=== PATIENT | male | born 1985 | race Caucasian/White ===

== ENCOUNTER 2022-05-19 15:04 | Emergency (ER) | payer SELFPAY ==
--- NOTE | 2022-05-19 15:00 | ECG_ITS ---
APPROVED REPORT Exam: Resting ECG HR:76 bpm ECG Measurements Heart Rate 76 AXES NM 143 P 53 QRSd 106 QRS 12 QT 374 T 49 QTc 405 Conclusion SINUS RHYTHM NORMAL ECG UNCONFIRMED REPORT Electronically signed by : Gaurang uClp MD 05/20/2022 17:38:08
[2022-05-19 15:05] VITALS: BP 119/80; PULSE 61; RESP 18; TEMP 36.7; O2SAT 100; BMI 27.8
[2022-05-19 16:31] VITALS: BP 134/65; PULSE 63; RESP 20; O2SAT 99
[2022-05-19 17:01] VITALS: BP 126/68; PULSE 72; RESP 20; O2SAT 99
--- NOTE | 2022-05-19 17:17 | XR_ITS ---
PROCEDURE INFORMATION: Exam: XR Chest Exam date and time: 05/19/2022 5:51 PM Age: 36 years old Clinical indication: Pain; Chest pressure; Additional info: Cp TECHNIQUE: Imaging protocol: Radiologic exam of the chest. Views: 1 view. Portable AP exam 5:51 p.m. COMPARISON: No relevant prior studies available. FINDINGS: Lungs: No acute pulmonary findings. No pulmonary consolidation. Lung volumes within normal limits. Pulmonary vessels do not appear congested. Pleural spaces: Unremarkable. No significant pleural effusion. No pneumothorax. Heart/Mediastinum: The cardiac silhouette appears mildly enlarged, though accentuated by portable AP technique. Bones/joints: There is no evidence of acute fracture. IMPRESSION: 1. Slightly enlarged cardiac silhouette. 2. No acute cardiopulmonary findings.
--- NOTE | 2022-05-19 17:19 | [facility].EDCP ---
Discharge Plan Disposition Patient Disposition: Home, Self-Care Condition: Good Referrals Follow up/Referrals: Provider,Referral, [Primary Care Provider] - See instructions Activity Restrictions/Add. Instructions Additional Instructions/Restrictions: Avoid exertion avoid heavy lifting or straining. [id number] ibuprofen 6 mg as needed 3-4 times daily. Return for increasing shortness of air or other concerns. Clinical Impressions Clinical Impression: Atypical chest pain Instructions Patient Instructions: DI for Atypical Chest Pain Discharge ED Provider: Carlyle Stewart Chest Pain HPI General Chief Complaint: Chest Pain Stated Complaint: Chest Pain Time Seen by Provider: 05/19/22 17:05 Mode of Arrival: Ambulatory Source of Information: Patient Limitations: No Limitations Description of Symptoms (Recalled from ER Triage Doc. by RN): Patient reports right sided rib pain when he breaths. Patient reports his kids were sick last week and he started feeling bad but thought he was getting better than it hit him all of the sudden again today and he had to leave work. History of Present Illness HPI narrative: She presents complaining of right-sided chest discomfort that began yesterday and became more pronounced today. He describes symptoms as severe at times and presently mild and worse with deep breaths. He denies recent fever or cough although he states 1 week ago he did have symptoms to include GI symptoms such as vomiting and headache and his children were sick at that time. X-rays once OVL be happy to Related Data Allergies Allergy/AdvReac Type Severity Reaction Status Date / Time No Known Allergies Allergy Verified 05/19/22 15:16 PFSH PFSH Social History Smoking Status: Never smoker alcohol intake: never current occupational status: employed Travel in the last 8 weeks: None ROS Obtained: Yes All systems reviewed & no additional complaints except as documented Physical Exam General General appearance: alert and in no apparent distress Head Head exam: atraumatic Eye Eye exam: Present normal appearance ENT ENT exam: Present normal exam Neck Neck exam: Present normal inspection Chest Chest inspection: Present normal inspection Respiratory Respiratory exam: Present normal lung sounds bilaterally Cardiovascular Cardiovascular exam: Present regular rate and normal rhythm Abdominal Exam Abdominal exam: Present soft; Absent tenderness Extremities Exam Extremities exam: Present normal inspection Back Exam Back exam: Present normal inspection Neurological Exam Neurological exam: Present alert and oriented X3 Skin Skin exam: Present warm and dry Lymphatic Lymphatic Findings: no adenopathy Medical Decision Making Medical Records Medical records reviewed: Yes I reviewed the patient's medical records. Jabari Inquiry Pt receiving controlled substance: No Jabari was queried for this patient: No Vital Signs: 05/19/22 15:05 05/19/22 16:31 05/19/22 17:01 Temperature 98.1 F Temperature Source Oral Pulse Rate 63 72 Pulse Rate [Right Brachial] 61 Respiratory Rate 18 20 20 Blood Pressure 134/65 126/68 Blood Pressure [Right Arm] 119/80 Blood Pressure Mean 82 77 Blood Pressure Mean [Right Arm] 93 Blood Pressure Source [Right Arm] Automatic Cuff Blood Pressure Position [Right Arm] Sitting 02 Sat by Pulse Oximetry 100 99 99 Oxygen Delivery Method Room Air 05/19/22 18:00 05/19/22 18:30 Temperature Temperature Source Pulse Rate 60 65 Pulse Rate [Right Brachial] Respiratory Rate Blood Pressure Blood Pressure [Right Arm] Blood Pressure Mean Blood Pressure Mean [Right Arm] Blood Pressure Source [Right Arm] Blood Pressure Position [Right Arm] 02 Sat by Pulse Oximetry 95 97 Oxygen Delivery Method Lab Data Lab results reviewed: Yes I reviewed the patient's lab results. Lab Results 05/19/22 15:11: D-Dimer 0.59 H 05/19/22 15:11: Troponin
[2022-05-19 17:25] LABS: Influenza A, PCR Not Detected (NotDetected); Influenza B, PCR Not Detected (NotDetected)
[2022-05-19 17:41] LABS: Alanine Aminotransferase 36 U/L (12-78); Albumin Level 4.5 g/dl (3.5-5.0); Albumin/Globulin Ratio 1.4 (1.1-1.8); Alkaline Phosphatase 89 U/L (38-126); Anion Gap 17.5 mEq/L (5-15); Aspartate Amino Transferase 33 U/L (17-59); Bilirubin,Total 1.3 mg/dl (0.2-1.3); Blood Urea Nitrogen 10 mg/dl (9-20); Carbon Dioxide 30 mmol/L (22.0-30.0); Chloride 97 mmol/L (98-107); Creatinine Clearance Estimated 146 mL/min (50-200); Estimated Glomerular Filt Rate 95 ml/min (>60); GFR (African American) 116 ML/MIN (>60); Globulin 3.3 g/dL (1.3-3.2); Glucose 87 mg/dl (74-100); Potassium 3.5 mmoL/L (3.5-5.1); Sodium 141 mmol/L (136-145); Total Protein,Serum 7.8 g/dl (6.3-8.2)
[2022-05-19 17:46] LABS: D-Dimer 0.59 ug/mL (0.0-0.5)
[2022-05-19 17:55] LABS: Troponin I < 0.01 ng/ml (0.00-0.034)
[2022-05-19 18:00] VITALS: PULSE 60; O2SAT 95
[2022-05-19 18:06] LABS: Coronavirus 19, PCR Detected (NotDetected)
--- NOTE | 2022-05-19 18:29 | CT_ITS ---
PROCEDURE INFORMATION: Exam: CTA Chest With Contrast Exam date and time: 05/19/2022 6:35 PM Age: 36 years old Clinical indication: Pain; Right-sided; Additional info: Cp TECHNIQUE: Imaging protocol: Computed tomographic angiography of the chest with contrast. 3D rendering (Not supervised by radiologist): MIP and/or 3D reconstructed images were created by the technologist. Radiation optimization: All CT scans at this facility use at least one of these dose optimization techniques: automated exposure control; mA and/or kV adjustment per patient size (includes targeted exams where dose is matched to clinical indication); or iterative reconstruction. Contrast material: ISOVUE 370; Contrast volume: 70 ml; Contrast route: INTRAVENOUS (IV); COMPARISON: CR XR CHEST PORTABLE 05/19/2022 5:51 PM FINDINGS: Pulmonary arteries: No acute pulmonary emboli. No large, central or segmental emboli. Aorta: No thoracic aortic aneurysm. Some motion and streak artifacts in the ascending aorta, no definite dissection. Thyroid: Heterogeneous thyroid with streak artifacts, no definite enlarged or suspicious nodules requiring follow-up. Lungs: Mild subsegmental atelectasis or scarring in the lower lobes. Ovoid retrocardiac 7 x 5 nodular opacity in the left lower lobe series 5, image 76, but on sagittal series 1002, image 64, this appears more likely to be a band of atelectasis or scarring . No other nodules. No consolidation. Pleural spaces: Unremarkable. No pneumothorax. No pleural effusion. Heart: The cardiac size appears borderline enlarged. No significant pericardial effusion.No definite coronary artery calcification is visualized. Heart RV/LV ratio: RV/LV ratio equals approximate 0.85, within upper normal limits. There is no reflux of contrast into the IVC or hepatic veins to suggest acute right heart strain. Lymph nodes: No significantly enlarged lymph nodes by short axis criteria. Spleen: Slight splenomegaly 13.2 cm long axis series 5, image 98. Bones/joints: There is no evidence of acute fracture. Soft tissues: There are no soft tissue masses or fluid collections. IMPRESSION: 1. No thoracic aortic aneurysm or evidence of dissection in the chest. 2. No acute pulmonary emboli. 3. Borderline cardiomegaly. 4. A questionable 7 mm retrocardiac left lower lobe nodule versus atelectasis or scarring. For patients at low risk (minimal or absent history of smoking and of other known risk factors), recommend CT Chest at 6-12 months, then consider CT Chest at 18-24 months. For patients at high risk (history of smoking or of other known risk factors), recommend CT Chest at 6-12 months, then CT Chest at 18-24 months. (Reference: [facility]) 5. Additional nonemergency and chronic findings as above. REFERENCES: [facility] Kuhn, et al. Guidelines for Management of Incidental Pulmonary Nodules Detected on CT Images: From the Fleischner Society 2017. Radiology. 2017;284(1):228-243.
[2022-05-19 18:30] VITALS: PULSE 65; O2SAT 97
--- NOTE | 2022-05-19 19:32 | PC.NURSE ---
patient given ice water
[2022-05-19 19:53] VITALS: BP 124/75; PULSE 60; PULSE 65; RESP 20; TEMP 36.7; O2SAT 97
== END 2022-05-19 20:00 | disposition home or self-care (01) ==
PROVIDERS: Emergency Provider Emergency Medicine
DX: U07.1 COVID-19 (principal); R07.89 Other chest pain; R07.81 Pleurodynia
CPT/HCPCS: 71045; 71275; 80053; 84484; 85378; 93005; 96361; 96374; 99284; C9803; J2405; Q9967; U0003; U0005

== ENCOUNTER 2023-02-05 20:42 | Emergency (ER) | payer MEDICAID, SELFPAY ==
[2023-02-05 20:44] VITALS: BP 148/92; PULSE 102; RESP 20; TEMP 36.7; O2SAT 96
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
[2023-02-05 20:54] VITALS: BMI 32.1
[2023-02-05 20:57] LABS: POC Glucose,Bedside 97 (70-110)
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
[2023-02-05 21:00] VITALS: BP 148/92; PULSE 89; RESP 19; TEMP 36.7; O2SAT 98; BMI 32.1
[2023-02-05 21:03] LABS: Basophils # 0.1 K/mm3 (0-0.2); Basophils % 0.9 % (0.1-2.0); Eosinophils # 0.2 K/mm3 (0.0-0.4); Eosinophils % 2.3 % (0.1-12.0); Hematocrit 48.8 % (42.0-52.0); Hemoglobin 15.8 g/dL (14.1-18.0); Lymphocytes # 3.4 K/mm3 (0.7-4.5); Lymphocytes % 33.4 % (10-50); Mean Corpuscular HGB Conc 32.3 g/dL (31.8-35.4); Mean Corpuscular Hemoglobin 30.3 pg (27.0-31.2); Mean Corpuscular Volume 93.7 fl (80-94); Mean Platelet Volume 8.3 fl (7.4-10.4); Monocytes # 0.5 K/mm3 (0.1-1.0); Monocytes % 4.8 % (1.7-9.3); Neutrophils % 58.6 % (37.0-80.0); Platelet Count 312 K/mm3 (142-424); Red Blood Count 5.21 M/mm3 (4.60-6.20); White Blood Count 10.2 K/mm3 (4.8-10.8)
[2023-02-05 21:08] LABS: Chloride 104 mmol/L (98-107); Potassium 3.8 mmoL/L (3.5-5.1); Sodium 142 mmol/L (136-145)
[2023-02-05 21:10] LABS: Alanine Aminotransferase 35 U/L (12-78); Aspartate Amino Transferase 37 U/L (17-59); Blood Urea Nitrogen 18 mg/dl (9-20); Creatinine Clearance Estimated 136 mL/min (50-200); Estimated Glomerular Filt Rate 75 ml/min (>60); GFR (African American) 91 ML/MIN (>60)
[2023-02-05 21:11] LABS: Albumin Level 4.9 g/dl (3.5-5.0); Albumin/Globulin Ratio 1.4 (1.1-1.8); Alkaline Phosphatase 99 U/L (38-126); Anion Gap 15.8 mEq/L (5-15); Bilirubin,Total 0.6 mg/dl (0.2-1.3); Calcium 9.9 mg/dl (8.4-10.2); Carbon Dioxide 26 mmol/L (22.0-30.0); Globulin 3.6 g/dL (1.3-3.2); Glucose 89 mg/dl (74-100); Total Protein,Serum 8.5 g/dl (6.3-8.2)
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
[2023-02-05 22:21] VITALS: BP 128/80; PULSE 79; RESP 16; TEMP 36.8; O2SAT 98; BMI 31.0
== END 2023-02-05 22:24 | disposition home or self-care (01) ==
PROVIDERS: Emergency Provider Family Medicine
DX: T14.8XXA Other injury of unspecified body region, initial encounter (principal); V20.49XA Other motorcycle driver injured in collision with pedestrian or animal in traffic accident, initial encounter; Z23 Encounter for immunization
CPT/HCPCS: 70450; 71045; 71260; 72125; 72170; 73060; 73080; 73090; 73130; 73562; 74177; 80053; 82962; 85025; 90715; 96360; 96372; 99284; 99285; Q9967